=== PATIENT | male | born 1935 | race Caucasian/White ===

== ENCOUNTER 2016-06-21 23:18 | Emergency (ER) | payer MEDICARE ==
[~2016-06-21] VITALS: Ht 167.6 cm; Wt 74.4 kg
[~2016-06-21 23:18] MED LIST: ACET-2321 PO; AMLO10TA62 PO; ASPI-1115 PO; BENA40TA35 PO; CELE-85 PO; CITI500C PO; DOCU-132 PO; DOXE10CA21 PO; DUTA1CPM PO; FEXO180T94 PO; FLUT9.9S NAS; FLUT9.9S NS; GINK120C PO; GLUC1CAP25 PO; MAGN400T31 PO; MULT-795 PO; OXYC-544 PO; POLY17PO6 PO; RANI150T7 PO; UBID100C18 PO; [UNRECOGNIZED DRUG - CODE] PO
--- OUTSIDE RECORDS SUMMARY | 2016-06-21 23:22 | XMS REPORT | Continuity of Care Document ---
Author Author [facility] Organization [facility] Address Unknown Phone Unavailable Care Team Providers Care Draw Furnace Tender Name Role Phone TOPHER MENDOZA DO Primary Care Physician [phone] Insurance Providers Guarantor Branden Velazco Address [address] [place] [address] Email [email or web address] Medicarecritical access hospital[facility] o Policy Number [id number] Subscriber's Name Branden Velazco Relationship 18 Self Group Number [id number] Chief Complaint and Reason for Visit Chief Complaint Cough,Fever,Flu,URI Reason for Visit Allergic rhinitis Problems Active Problems Medical Problem Onset Date Status Allergic rhinitis Unknown Acute BPH (benign prostatic hyperplasia) Unknown Acute Chest pain, rule out acute myocardial infarction Unknown Acute Degenerative arthritis of hip Unknown Acute Elevated liver function tests Unknown Acute Esophageal spasm Unknown Acute HTN (hypertension) Unknown Acute 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 Hyponatremia ~11/27/2014 Acute Leukocytosis Unknown Acute RUQ abdominal pain Unknown Resolved Medications Current Home Medications Medication Dose Units Route Directions Days Qty Instructions Start Date Acetaminophen (Tylenol) 325 Mg Tablet 650 Mg Oral Four Times Daily 100 Tablet 11/27/14 Amlodipine Besylate (Norvasc) 10 Mg Tablet 1 Tab Oral Daily 12/26 Aspirin (Ecotrin) 325 Mg Tablet 325 Mg Oral Twice A Day 84 Tablet 11/27/14 Benazepril Hcl 40 Mg Tablet 1 Tab Oral Daily 12/26/12 Celecoxib 200 Mg Capsule 1 Cap Oral Daily 11/26/14 Citicoline Sodium (Cerenx) 500 Mg Capsule 1 Cap Oral Daily Docusate Sodium (Dulcolax Stool Softener) 100 Mg Capsule 1 Cap Oral Twice A Day 11/15/14 Doxepin Hcl 10 Mg Capsule 1 Tab Oral Daily 12/26/12 Dutasteride/Tamsulosin Hcl ([place] 0.5-0.4 Mg Capsule) 1 Each Cpmp.24hr 1 Tab Oral Daily 11/14/14 Fexofenadine Hcl (Nallely Allergy) 180 Mg Tablet 1 Tab Oral Daily [address] Aubrey Ricketts Account Executive Sales Representative [facility] [address] [facility] [phone] 11/29/15 Fluticasone Propionate (Flonase Allergy Relief 50 Mcg/Actuation Nasal) 9.9 Ml Napier.susp 2 Napier Intranasal Daily 11/26/14 Fluticasone Propionate (Flonase Allergy Relief 50 Mcg/Actuation Nasal) 9.9 Ml Napier.susp 1 Napier Nasal Twice A Day 30 Days [address] Aubrey Ricketts Account Executive Sales Representative [facility] [address] [facility] [phone] 11/29/15 Ginkgo Biloba Extract (Ginkgo Biloba) 120 Mg Capsule 1 Cap Oral Twice A Day 11/22/14 Glucosa Perales 2KCL/Chondroitin Perales (Glucosamine & Chondroitin Cap) 1 Cap Capsule 1 Cap Oral Daily 09/29/09 Lysine 500 Mg Tablet 2 Tab Oral Daily 12/26/12 Magnesium Oxide (Magox 400) 400 Mg Tablet 400 Mg Oral Twice A Day 11/26/14 Multivitamins W-Minerals/Lut (Centrum Silver Tablet) 1 Tab Tablet 1 Tab Oral Daily 12/26/12 Oxycodone Hcl (Roxicodone) 5 Mg Tablet 5-15 Mg Oral Every 3 Hours as needed for Breakthrough Pain 60 Tablet 11/27/14 Polyethylene Glycol 3350 (Miralax) 17 Gm Packet 17 Gm Oral Daily 30 Packet 11/27/14 Ranitidine Hcl 150 Mg Tablet 150 Mg Oral Twice A Day for Allery Symptoms 14 Days 28 Tablet Take 1 tablet, by mouth, 2 times a day. Supervising physician Dr. Aubrey Ricketts Account Executive Sales Representative [facility] [address] [facility] [phone] 11/29/15 Ubidecarenone (Co Q-10) 100 Mg Capsule 1 Tab Oral Daily 09/29/09 Past Home Medications Medication Directions Ordered Status Aspirin (Adult Low Dose Aspirin Ec) 81 Mg Tablet., 1 Tab Oral Daily Discontinued Aspirin 325 Mg Tablet, 325 Mg Oral As Needed 09/29/09 Discontinued Dutasteride (Avodart) 0.5 Mg Capsule, 0.5 Mg Oral Daily 09/29/09 Discontinued Hydrochlorothiazide 25 Mg Tablet, 1 Tab Oral Daily 09/29/09 Discontinued Lysine 500 Mg Tablet, 500 Mg Oral Daily 09/29/09 Discontinued Multivitamins (Multiple Vitamin) 1 Tab Tablet, 1 Tab Oral Daily 07/24/09 Discontinued Social History Social History Problem Response Recorded Date/Time Onset Date Status Chewing Tobacco Status No 02/20/2013 2:30pm Not Applicable Not Applicable Hx Substance Use No 12/07/2014 8:14pm Not Applicable Not Applicable Hx Alcohol Use No 12/07/2014 8:14pm Not Applicable Not Applicable Has the pt used tobacco in the last 12 months No 11/14/2014 6:17pm Not Applicable Not Applicable Tobacco Usage none other 11/27/2014 4:24pm Not Applicable Not Applicable Hospital Discharge Instructions No hospital discharge instructions. Plan of Care Discharge Date 11/29/15 11:05am Disposition 01 DISCHARGED HOME, SELF-CARE Condition at Discharge Stable Instructions/Education Provided DI for Allergic Rhinitis Prescriptions See Medication Section Referrals TOPHER MENDOZA DO Address: [address] [place] [address] [address] STA[address] [place] [address], [place] [phone] Additional Instructions/Education Use flonase nasal spray as directed; Take Ranitidine and nallely as directed. Stay indoors as much as possible. Follow with Dr Mendoza. Functional Status No functional status results. Allergies, Adverse Reactions, Alerts Allergen Type Severity Reaction Status Last Updated Penicillin Allergy Unknown HIVES, RASH Active 11/29/15 Codeine Allergy Unknown Active 11/29/15 Doxazosin Allergy Unknown Active 11/29/15 Immunizations Query Response on File Recorded Date/Time Hx Influenza Vaccination Y OCT 2014 11/14/14 6:17pm Hx Pneumococcal Vaccination Y UNSURE OF DATE 11/14/14 6:17pm Hx Tetanus, Diptheria, Pertussis N NA 11/14/14 4:11pm Hx Influenza Vaccination Y OCT 2014 11/14/14 6:17pm Hx Tetanus, Diptheria, Pertussis N NA 11/14/14 4:11pm Influenza Vaccine Hx MONTH AGO 11/29/15 10:36am Vital Signs Acute Vital Signs Vital Response Date/Time Pulse Rate (adult) 74 bpm (60 - 100) 11/29/2015 10:33am Respiratory Rate 16 breaths/min (10 - 20) 11/29/2015 10:33am O2 Sat by Pulse Oximetry 97 % (90 - 100) 11/29/2015 10:33am Blood Pressure 141/73 mm Hg 11/29/2015 10:33am Height (Feet) 5 feet 11/29/2015 10:33am Height (Inches) 6.00 inches 11/29/2015 10:33am Weight (Kilograms) 76.500 kg 11/29/2015 10:33am Body Mass Index (BMI) 27.0 11/29/2015 10:33am Results No known relevant diagnostic tests, laboratory data and/or discharge summary. Procedures No known history of procedures. Encounters Encounter Location Arrival/Admit Date Discharge/Depart Date Attending Provider Departed Emergency Room [facility] 11/29/15 10:37am 11/29/15 11: 05am ARTURO MOYER APRN Recent Diagnosis
[2016-06-21 23:25] VITALS: TEMP 98; Ht 167.6 cm; Wt 74.4 kg
[2016-06-21] MEDS ORDERED: NORMAL SALINE 1,000 ML IV ONE (23:37)
[2016-06-21] MEDS ORDERED: NITROGLYCERIN 0.4 MG SUBLINGUAL TABLET SL PRN (23:45)
[2016-06-21 23:55] LABS: BASOPHILS % (AUTO) 0.3 % (0-2); EOSINOPHILS # (AUTO) 0.2 T/MM3 (0-0.5); EOSINOPHILS % (AUTO) 2.9 % (0-4); HCT - HEMATOCRIT 35.7 % (41-53); HGB - HEMOGLOBIN 12.3 GM/DL (13.5-17.5); LYMPHOCYTES # (AUTO) 2.1 T/MM3 (1-4.8); LYMPHOCYTES % (AUTO) 34.4 % (23-45); MEAN CORPUSCULAR HGB CONC(MCHC 34.5 GM/DL (31-37); MEAN CORPUSCULAR VOLUME 95.7 UM3 (80-100); MEAN PLATELET VOLUME 8.7 UM3 (9.4-12.4); MONOCYTES # (AUTO) 0.7 T/MM3 (0-0.8); MONOCYTES % (AUTO) 10.8 % (0-9.0); NEUTROPHILS #(AUTO)-ABSOLUTE 3.2 T/MM3 (1.8-7.7); NEUTROPHILS % (AUTO) 51.6 % (33-66); RED BLOOD COUNT 3.73 M/MM3 (4.50-5.90); WBC - WHITE BLOOD COUNT 6.1 T/MM3 (4.5-11.0)
[2016-06-22 00:05] LABS: ALBUMIN/GLOBULIN RATIO 1.8 RATIO (1.1-2.2); ALKALINE PHOSPHATASE 97 U/L (38-126); ALT (SGPT) 87 U/L (21-72); ANION GAP 12 MEQ/L (5-15); AST (SGOT) 149 U/L (17-59); BUN/CREATININE RATIO 23 RATIO (6-26); CHLORIDE 99 MEQ/L (98-107); CO2 - CARBON DIOXIDE 27 MEQ/L (22-30); CREATININE 0.7 MG/DL (0.8-1.5); GLOMERULAR FILTRATION RATE 109; GLUCOSE 118 MG/DL (75-110); POTASSIUM 3.6 MEQ/L (3.6-5); SODIUM 138 MEQ/L (134-144); TOTAL PROTEIN 6.2 G/DL (6.3-8.2)
[2016-06-22 00:09] LABS: INR 0.98 (0.76-1.04); PROTHROMBIN TIME 10.7 SEC (9.31-12.49)
[2016-06-22 00:16] LABS: PROBNP 43 PG/ML (0-175)
[2016-06-22 00:18] LABS: BLOOD, URINE NEGATIVE (NEGATIVE); COLOR,URINE YELLOW (YELLOW); LEUKOCYTE ESTERASE ,URINE NEGATIVE (NEGATIVE); NITRITE,URINE NEGATIVE (NEGATIVE)
--- NOTE | 2016-06-22 00:31 | ERPDOC ---
Departure Disposition Decision Date: June 22, 2016 Disposition Decision Time: 00:48 Disposition: 01 DISCHARGED HOME, SELF-CARE Impression Impression Impression: Primary Impression: Chest pain, rule out acute myocardial infarction Additional Impression: Reflux esophagitis Severity: Moderate Condition: Improved Seen By: Physician only Referrals: TOPHER MENDOZA DO (PCP/Family) Patient Instructions: Chest Pain (ED) Problems/Meds/Labs Reviewed?: Yes Medications reviewed and manag: Yes Additional Instructions: Please call your pipe fitter tomorrow to set up a follow-up appointment. Return to the emergency department immediately if you develop chest pain. Follow up care ordered?: Yes Mental Status: Alert, Oriented HPI - Chest Pain General Chief Complaint: Chest Pain Stated Complaint: CHEST PAIN Time Seen by Provider: 23:37 HPI - Chest Pain Initial Comments 80-year-old gentleman with chest pain. This onset while he was asleep, and awoke him. He has no cardiac history, but did have chest pain one year ago and was seen in the ED. He does not have a pipe fitter. He is a nonsmoker, does not have elevated cholesterol but does have hypertension. Significant family history of coronary artery disease in parents and siblings. He had pizza for dinner tonight, but states he never gets reflux. He is very active, mobile yard for a couple of hours today on a riding mower and then puttered around with other things. He states he does this kind of activity on a regular basis and stops and rests if he gets tired. He does not have any chest pain with activity. No dyspnea with activity. He states his pain woke him up at approximately 10:00 and was 10 out of 10. It is now settled to 3 out of 10. It is not pressure, was a sharp type of pain. Aspirin Treatment Today: provided at home Allergies: Coded Allergies: Penicillins (Verified Allergy, Unknown, HIVES, RASH, 06/22/16) codeine (Verified Allergy, Unknown, 06/22/16) PER H&P DATED 11-08-14 doxazosin (Verified Allergy, Unknown, 06/22/16) Past History Patient Surgical History L & R inguinal hernia repair. Lumbar spine surgery T&A Rt great toe surgery Dr Kaplan. Whipple procedure for duodenal ca in 1980 (gallbladder removed with the Whipple) Colonscopy 2003 DR Arias. EGD Bilat eye procedure for retinal detachment. Past Medical History Metabolic: cancer, hypertension Surgical History General: other Vaccines Hx Influenza Vaccination: Yes (OCT 2014) Hx Pneumococcal Vaccination: Yes (UNSURE OF DATE) Hx Tetanus, Diptheria, Pertuss: No (NA) Social History Smoking Status: Never smoker # of Packs/Tins per Day: 1.0 # of Years: 3 Quit Date: Feb 14, 1995 Substance Use Type: does not use Alcohol Intake: none, 0-2 drinks per day Marital Status: Review of Systems Constitutional Constitutional: see HPI Cardiovascular Cardiac: see HPI Rhythm/Rate: see HPI Pulmonary Respiratory: see HPI GI Upper Abdomen: see HPI All other Systems All Other Systems: Reviewed and Negative Physical Exam General General Nourishment: well nourished, well developed, appears stated age, no acute distress Vitals and Pain First Documented Vital Signs Date Time Temp Pulse Resp B/P Pulse Ox O2 Delivery O2 Flow Rate FiO2 06/21/16 23:25 98.0 66 16 157/74 98 Room Air Weight: Kilograms: Height (feet): 5 Height (inches): 6.00 Triage Pain Scale: Normal Exams: Head: Normocephalic w/o trauma Neck: Full range of motion, without adenopathy, JVD, bruits or thyromegaly Chest/Resp: Clear all paul, with good airflow, and symmetry bilaterally CV: Regular rate and rhythm, without murmur or gallop, Pulses 2+ all extremities, capillary refill, <2 seconds all ext., no pedal edema noted Abdomen: Bowel sounds positive, soft, non-tender, non-distended, no hepatosplenomegaly, masses or bruits noted Neurologic: Patient is alert, and oriented, cranial nerves, motor/sensory/ cerebellar, exams w/o gross deficits, to observation Psychiatric: Patient exhibits, appropriate attention, emotion and affect Cardiovascular (brief) Comments Chest wall nontender to palpation Differential Diagnoses Considering: Acute PR, Anxiety/Panic, Angina, Biliary Colic, Costochondritis, Esophageal Spasm, Pancreatitis, Pericarditis, Pneumothorax, Pneumonia, Pulmonary Edema, Pulmonary Embolus, Rib Fracture Progress Results/Orders Orders Procedure Category Date Status Time Cbc W/Auto LAB 06/21/16 Complete Diff-Reflex Manual 23:37 Cmp - Comprehensive LAB 06/21/16 Complete Metabolic 23:37 Probnp LAB 06/21/16 Complete 23:37 Troponin I W LAB 06/21/16 Complete Hemolysis Index 23:37 INR LAB 06/21/16 Complete 23:37 Ua, Dip Wreflex LAB 06/21/16 Complete Microsc & Real Time Trader 23:37 D-Dimer LAB 06/21/16 Complete 23:37 EKG EKG 06/21/16 Logged 23:37 Chest, Pa & Lateral RAD 06/21/16 Taken 23:37 Iv Lock (Ed Only) EDM 06/21/16 Transmitted 23:37 Normal Saline (Normal PHA 06/21/16 Complete Saline Iv) 23:37 Nitroglycerin PHA 06/21/16 In Process (Nitrostat) 23:45 Lab Results Laboratory Tests Test 06/21/16 23:48 06/21/16 23:49 White Blood Count 6.1T/MM3 Red Blood Count 3.73M/MM3 Hemoglobin 12.3GM/DL Hematocrit 35.7% Mean Corpuscular Volume 95.7UM3 Mean Corpuscular Hemoglobin 33.0UUG Mean Corpuscular Hemoglobin Concent 34.5GM/DL RDW Standard Deviation 41.5FL Platelet Count 234T/MM3 Mean Platelet Volume 8.7UM3 Immature Granulocyte % (Auto) 0.0% Neutrophils (%) (Auto) 51.6% Lymphocytes (%) (Auto) 34.4% Monocytes (%) (Auto) 10.8% Eosinophils (%) (Auto) 2.9% Basophils (%) (Auto) 0.3% Absolute Immature Granulocyte (auto 0.00T/MM3 Absolute Neutrophils (auto) 3.2T/MM3 Absolute Lymphocytes (auto) 2.1T/MM3 Absolute Monocytes (auto) 0.7T/MM3 Absolute Eosinophils (auto) 0.2T/MM3 Absolute Basophils (auto) 0.0T/MM3 Prothromb Time International Ratio 0.98 D-Dimer < 150NG/ML Turbidity < 20 Sodium Level 138MEQ/L Potassium Level 3.6MEQ/L Chloride Level 99MEQ/L Carbon Dioxide Level 27MEQ/L Anion Gap 12MEQ/L Blood Urea Nitrogen 16.0MG/DL Creatinine 0.7MG/DL Glomerular Filtration Rate Calc 109 BUN/Creatinine Ratio 23RATIO Glucose Level 118MG/DL Calculated Osmolality 268MOSM/KG Calcium Level 9.0MG/DL Total Bilirubin 0.40MG/DL Icterus Index < 2 Aspartate Amino Transf (AST/SGOT) 149U/L Alanine Aminotransferase (ALT/SGPT) 87U/L Alkaline Phosphatase 97U/L Troponin I < 0.012ng/ml QC-[id number] Natriuretic Peptide 43PG/ML Total Protein 6.2G/DL Albumin 4.0G/DL Globulin 2.2G/DL Albumin/Globulin Ratio 1.8RATIO Chemistry Specimen Hemolysis < 15 Urine Collection Type Cleancatch-midstream Urine Color Yellow Urine Turbidity Sl cloudy Urine pH 6.5 Urine Specific Parkman 1.010 Urine Protein Negative Urine Glucose (UA) Negative Urine Ketones Negative Urine Blood Negative Urine Nitrite Negative Urine Bilirubin Negative Urine Urobilinogen 1.0EU/DL Urine Leukocyte Esterase Negative Urinalysis Comment Microscopic not ind. Medications Current ED Medications Sodium Chloride (Normal Saline IV) 1,000 ml @ 1,000 mls/hr Q1H ONCE IV Last administered on 06/22/16t 00:11; Start 06/21/16 at 23:37; Stop 06/22/16 at 00:36; Status DC Nitroglycerin (Nitrostat) 0.4 mg Q5MIN PRN SL CHEST PAIN; Start 06/21/16 at 23: 45 Progress Progress Cardiac enzymes and d-dimer returned negative. Chest x-ray is appropriate. EKG shows no acute changes. On review of family history, all family members with coronary artery disease were older than age 50 on onset. Patient has been actively taking ditches and mowing his yard with no chest pain or shortness of breath. He did have pizza for dinner. Chest pain has resolved. I would like him to follow up with his pipe fitter, Dr. Damon tomorrow to set up an appointment. He did agree that if he had any recurrent chest pain he would present back to the ED immediately. I did offer to keep him overnight and observe him, he did not want to and I feel he is appropriate to go home at this time. TONO YEPEZ MD June 22, 2016 00:31
[2016-06-22 00:45] VITALS: BP 136/70
[2016-06-22 00:48] VITALS: PULSE 60; RESP 16; O2SAT 96
--- OUTSIDE RECORDS SUMMARY | 2016-06-22 01:13 | XMS REPORT | Continuity of Care Document ---
Author Author [facility] Organization [facility] Address Unknown Phone Unavailable Care Team Providers Care Simulation Technician Name Role Phone TOPHER MENDOZA DO Primary Care Physician [phone] Insurance Providers Guarantor Branden Velazco Address [address] [place] [address] Email [email or web address] Policy Number [id number] Subscriber's Name Branden Velazco Relationship 18 Self Group Number [id number] Advance Directives Directive Response Recorded Date/Time Advanced Directives Type None 06/21/16 11:25pm Chief Complaint and Reason for Visit Chief Complaint Chest Pain Reason for Visit Chest pain, rule out acute myocardial infarction [id number] Problems Active Problems Medical Problem Onset Date Status BPH (benign prostatic hyperplasia) Unknown Acute Degenerative arthritis of hip Unknown Acute Elevated liver function tests Unknown Acute Esophageal spasm Unknown Acute HTN (hypertension) Unknown Acute 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 Hyponatremia ~11/27/2014 Acute Leukocytosis Unknown Acute RUQ abdominal pain Unknown Resolved Past Problems Medical Problem Onset Date Allergic rhinitis Unknown Chest pain, rule out acute myocardial infarction Unknown Reflux esophagitis Unknown Medications Current Home Medications Medication Dose Units [...] 1 Tab Oral Daily 11/14/14 Fexofenadine Hcl (Aspen Allergy) 180 Mg Tablet 1 Tab Oral Daily [address] Aubrey Ricketts [employer] [facility] [address] [facility] [phone] 11/29/15 Fluticasone Propionate (Flonase Allergy Relief 50 Mcg/Actuation Nasal) 9.9 Ml [place].susp 2 [place] Intranasal Daily 11/26/14 Fluticasone Propionate (Flonase Allergy Relief 50 Mcg/Actuation Nasal) 9.9 Ml [place].susp 1 [place] Nasal Twice A Day 30 Days [address] Aubrey Ricketts Visual Training A[employer] [facility] [address] [facility] [phone] 11/29/15 Ginkgo Biloba Extract (Ginkgo Biloba) 120 [...] Tab Tablet 1 Tab Oral Daily 12/26/12 Polyethylene Glycol 3350 (Miralax) 17 Gm Packet 17 Gm Oral Daily 30 Packet 11/27/14 Ubidecarenone (Co Q-10) 100 Mg Capsule 1 Tab Oral Daily 09/29/09 Past Home Medications Medication Directions Ordered Status Aspirin (Adult Low Dose Aspirin Ec) 81 Mg Tablet.dr, 1 Tab Oral Daily Discontinued Aspirin 325 Mg Tablet, 325 Mg Oral As Needed 09/29/09 Discontinued Dutasteride (Avodart) 0.5 Mg Capsule, 0.5 Mg Oral Daily 09/29/09 Discontinued Hydrochlorothiazide 25 Mg Tablet, 1 Tab Oral Daily 09/29/09 Discontinued Lysine 500 Mg Tablet, 500 Mg Oral Daily 09/29/09 Discontinued Multivitamins (Multiple Vitamin) 1 Tab Tablet, 1 Tab Oral Daily 07/24/09 Discontinued Oxycodone Hcl (Roxicodone) 5 Mg Tablet, 5-15 Mg Oral Every 3 Hours as needed for Breakthrough Pain 11/27/14 Discontinued Ranitidine Hcl 150 Mg Tablet, 150 Mg Oral Twice A Day for Allery Symptoms Discontinued Social History Social History Problem Response Recorded Date/Time Onset Date Status Chewing Tobacco Status No 02/20/2013 2:30pm Not Applicable Not Applicable Hx Substance Use No 06/22/2016 12:38am Not Applicable Not Applicable Hx Alcohol Use No 06/22/2016 12:38am Not Applicable Not Applicable Has the pt used tobacco in the last 12 months No 11/14/2014 6:17pm Not Applicable Not Applicable Tobacco Usage none other 11/27/2014 4:24pm Not Applicable Not Applicable Query Response Start Date Stop Date Smoking Status Never smoker Hospital Discharge Instructions No hospital discharge instructions. Plan of Care Discharge Date 06/22/16 1:00am Disposition 01 DISCHARGED HOME, SELF-CARE Condition at Discharge Improved Instructions/Education Provided Chest Pain (ED) Prescriptions See Medication Section Referrals TOPHER MENDOZA DO Address: [address] [place] [address] [address] [place] [address] [phone] Additional Instructions/Education Please call your collection systems modeler tomorrow to set up a follow-up appointment. Return to the emergency department immediately if you develop chest pain. Functional Status No functional status results. Allergies, Adverse Reactions, Alerts Allergen Type Severity Reaction Status Last Updated Penicillin Allergy Unknown HIVES, RASH Active 06/22/16 Codeine Allergy Unknown Active 06/22/16 Doxazosin Allergy Unknown Active 06/22/16 Immunizations Query Response on File Recorded Date/Time Hx Influenza Vaccination Y OCT 2014 11/14/14 6:17pm Hx Pneumococcal Vaccination Y UNSURE OF DATE 11/14/14 6:17pm Hx Tetanus, Diptheria, Pertussis N NA 11/14/14 4:11pm Hx Influenza Vaccination Y OCT 2014 11/14/14 6:17pm Hx Tetanus, Diptheria, Pertussis N NA 10/01/15 4:11pm Influenza Vaccine Hx 201506/22/16 12:38am Vital Signs Acute Vital Signs Vital Response Date/Time Temperature (Fahrenheit) 98.0 deg F (96.8 - 99.1) 06/22/2016 1:00am Temperature (Calculated Celsius) 36.15734 degrees C (36.0 - 37.3) 06/22/2016 1:00am Pulse Rate (adult) 60 bpm (60 - 100) 06/22/2016 1:00am Respiratory Rate 16 breaths/min (10 - 20) 06/22/2016 1:00am O2 Sat by Pulse Oximetry 96 % (90 - 100) 06/22/2016 1:00am Blood Pressure 136/70 mm Hg 06/22/2016 1:00am Height (Feet) 5 feet 06/21/2016 11:25pm Height (Inches) 6.00 inches 06/21/2016 11:25pm Weight (Kilograms) 74.400 kg 06/21/2016 11:25pm Body Mass Index (BMI) 26.0 06/21/2016 11:25pm Results Laboratory Results Test Name Result Units Flags Reference Collection Date/Time Result Date/ Time Comments White Blood Count 6.1 T/MM3 4.5-11.0 06/21/2016 11:48pm 06/21/2016 11: 55pm Red Blood Count 3.73 M/MM3 L 4.50-5.90 06/21/2016 11:48pm 06/21/2016 11: 55pm Hemoglobin 12.3 GM/DL L 13.5-17.5 06/21/2016 11:48pm 06/21/2016 11:55pm Hematocrit 35.7 % L 41-53 06/21/2016 11:48pm 06/21/2016 11:55pm Mean Corpuscular Volume 95.7 UM3 80-100 06/21/2016 11:48pm 06/21/2016 11:55pm Mean Corpuscular Hemoglobin 33.0 UUG 26-34 06/21/2016 11:48pm 2016 11:55pm Mean Corpuscular Hemoglobin Concent 34.5 GM/DL 31-37 06/21/2016 11:48pm 06/21/2016 11:55pm RDW Standard Deviation 41.5 FL 36.9-50.2 06/21/2016 11:48pm 06/21/2016 11:55pm Platelet Count 234 T/MM3 130-400 06/21/2016 11:48pm 06/21/2016 11:55pm Mean Platelet Volume 8.7 UM3 L 9.4-12.4 06/21/2016 11:48pm 06/21/2016 11 :55pm Neutrophils (%) (Auto) 51.6 % 33-66 06/21/2016 11:48pm 06/21/2016 11: 55pm Lymphocytes (%) (Auto) 34.4 % 23-45 06/21/2016 11:48pm 06/21/2016 11: 55pm Monocytes (%) (Auto) 10.8 % H 0-9.0 06/21/2016 11:48pm 06/21/2016 11: 55pm Eosinophils (%) (Auto) 2.9 % 0-4 06/21/2016 11:48pm 06/21/2016 11:55pm Basophils (%) (Auto) 0.3 % 0-2 06/21/2016 11:48pm 06/21/2016 11:55pm Immature Granulocyte % (Auto) 0.0 % 0.0-0.5 06/21/2016 11:48pm 2016 11:55pm Absolute Neutrophils (auto) 3.2 T/MM3 1.8-7.7 06/21/2016 11:48pm 2016 11:55pm Absolute Lymphocytes (auto) 2.1 T/MM3 1-4.8 06/21/2016 11:48pm 2016 11:55pm Absolute Monocytes (auto) 0.7 T/MM3 0-0.8 06/21/2016 11:48pm 2016 11:55pm Absolute Eosinophils (auto) 0.2 T/MM3 0-0.5 06/21/2016 11:48pm 2016 11:55pm Absolute Basophils (auto) 0.0 T/MM3 0-0.2 06/21/2016 11:48pm 2016 11:55pm Absolute Immature Granulocyte (auto 0.00 T/MM3 0.00-0.03 06/21/2016 11: 48pm 06/21/2016 11:55pm Prothromb Time International Ratio 0.98 0.76-1.04 06/21/2016 11:48pm 06/22/2016 12:09am THERAPUTIC RANGE=2.00-3.00 FOR ANTI-THROMBOSIS THERAPUTIC RANGE=2.50-3.50 FOR IMPLANTED VALVE D-Dimer < 150 NG/ML 0-230 06/21/2016 11:48pm 06/22/2016 12:09am <230 NG/ML D-DU=PRESUMPTIVE NEGATIVE FOR PE OR DVT >230 NG/ML D-DU=ADDITIONAL EVAL FOR PE OR DVT RECOMMENDED Icterus Index < 2 0-7 06/21/2016 11:48pm 06/22/2016 12:05am Chemistry Specimen Hemolysis < 15 0-25 06/21/2016 11:48pm 06/22/2016 12:05am 0-25: Specimen Exhibited No Hemolysis. Turbidity < 20 0-20 06/21/2016 11:48pm 06/22/2016 12:05am Sodium Level 138 MEQ/L 134-144 06/21/2016 11:48pm 06/22/2016 12:05am Potassium Level 3.6 MEQ/L 3.6-5 06/21/2016 11:48pm 06/22/2016 12:05am Chloride Level 99 MEQ/L 98-107 06/21/2016 11:48pm 06/22/2016 12:05am Carbon Dioxide Level 27 MEQ/L 22-30 06/21/2016 11:48pm 06/22/2016 12: 05am Anion Gap 12 MEQ/L 5-15 06/21/2016 11:48pm 06/22/2016 12:05am Blood Urea Nitrogen 16.0 MG/DL 9-20 06/21/2016 11:48pm 06/22/2016 12: 05am Creatinine 0.7 MG/DL L 0.8-1.5 06/21/2016 11:48pm 06/22/2016 12:05am BUN/Creatinine Ratio 23 RATIO 6-26 06/21/2016 11:48pm 06/22/2016 12: 05am Glomerular Filtration Rate Calc 109 06/21/2016 11:48pm 06/22/2016 12:05am Glucose Level 118 MG/DL H 75-110 06/21/2016 11:48pm 06/22/2016 12:05am Calculated Osmolality 268 MOSM/KG 261-280 06/21/2016 11:48pm 2016 12:05am Calcium Level 9.0 MG/DL 8.4-10.2 06/21/2016 11:48pm 06/22/2016 12:05am Total Bilirubin 0.40 MG/DL 0.20-1.30 06/21/2016 11:48pm 06/22/2016 12: 05am Alkaline Phosphatase 97 U/L 38-126 06/21/2016 11:48pm 06/22/2016 12: 05am Total Protein 6.2 G/DL L 6.3-8.2 06/21/2016 11:48pm 06/22/2016 12:05am Albumin 4.0 G/DL 3.5-5.0 06/21/2016 11:48pm 06/22/2016 12:05am Globulin 2.2 G/DL L 2.4-3.6 06/21/2016 11:48pm 06/22/2016 12:05am Albumin/Globulin Ratio 1.8 RATIO 1.1-2.2 06/21/2016 11:48pm 06/22/2016 12:05am Aspartate Amino Transf (AST/SGOT) 149 U/L H 17-59 06/21/2016 11:48pm 10/2016 12:05am Alanine Aminotransferase (ALT/SGPT) 87 U/L H 21-72 06/21/2016 11:48pm 12:05am Troponin I < 0.012 ng/ml 0-0.12 06/21/2016 11:48pm 06/22/2016 12:16am Troponin values with a difference of 55% increase from orginal troponin value represent a true biological DELTA value. (%increase Calc=Orginal Troponin value, divided by subsequent Troponin value, multiplied by 100) BH-Dej-F-Type Natriuretic Peptide 43 PG/ML 0-175 06/21/2016 11:48pm 10/2016 12:16am Rule in cut points: <50 years old=450; 50-75 years old=900; >75 years old=1800; When utilizing ProBNP rule-in cut points, adjustment for impaired renal function is typically not required. Urine Collection Type [place]-MIDSTREAM 06/21/2016 11:49pm 06/22 12:18am Urine Color YELLOW YELLOW 06/21/2016 11:49pm 06/22/2016 12:18am Urine Turbidity SL CLOUDY CLEAR 06/21/2016 11:49pm 06/22/2016 12: 18am Urine Specific [place] 1.010 L 1.015-1.025 06/21/2016 11:49pm 2016 12:18am Urine pH 6.5 5.0-8.0 06/21/2016 11:49pm 06/22/2016 12:18am Urine Leukocyte Esterase NEGATIVE NEGATIVE 06/21/2016 11:49pm 2016 12:18am Urine Nitrite NEGATIVE NEGATIVE 06/21/2016 11:49pm 06/22/2016 12: 18am Urine Protein NEGATIVE NEGATIVE 06/21/2016 11:49pm 06/22/2016 12: 18am Urine Glucose (UA) NEGATIVE NEGATIVE 06/21/2016 11:49pm 06/22/2016 12 :18am Urine Ketones NEGATIVE NEGATIVE 06/21/2016 11:49pm 06/22/2016 12: 18am Urine Urobilinogen 1.0 EU/DL NORMAL 06/21/2016 11:49pm 06/22/2016 12: 18am Urine Bilirubin NEGATIVE NEGATIVE 06/21/2016 11:49pm 06/22/2016 12: 18am Urine Blood NEGATIVE NEGATIVE 06/21/2016 11:49pm 06/22/2016 12:18am Urinalysis Comment MICROSCOPIC NOT IND. 06/21/2016 11:49pm 2016 12:18am Procedures No known history of procedures. Encounters Encounter Location Arrival/Admit Date Discharge/Depart Date Attending Provider Departed Emergency Room [facility] 06/21/16 11:18pm 06/22/16 1: 00am TONO YEPEZ MD Recent Diagnosis
--- NOTE | 2016-06-22 08:06 | DI ---
LOCATION OF DICTATION: [place] EXAM: CHEST, PA LATERAL HISTORY: ITS.REASON: chest pain. COMPARISON: December 07, 2014 FINDINGS: The heart size is normal. The mediastinal configuration is unremarkable. There are no consolidating opacities or pleural effusions. There is stable mild left basilar atelectasis or pleural thickening. There is no evidence for a pneumothorax. The osseous structures are within normal limits. IMPRESSION: No acute cardiopulmonary abnormality is identified. .
== END 2016-06-22 01:00 | disposition home or self-care (01) ==
LOC: ED 23:18
DX: R07.9 Chest pain, unspecified (principal); K21.0 Gastro-esophageal reflux disease with esophagitis; I10 Essential (primary) hypertension; Z82.49 Family history of ischemic heart disease and other diseases of the circulatory system
CPT/HCPCS: 71020; 80053; 81003; 83880; 84484; 85025; 85379; 85610; 93005; 99284; J7030